=== PATIENT | male | born 1990 | race Caucasian/White ===

== ENCOUNTER 2021-06-08 17:49 | Emergency (ER) | payer SELFPAY ==
--- OUTSIDE RECORDS SUMMARY | 2021-06-08 17:55 | XMS REPORT | Continuity of Care Document ---
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 Jenna S 1,000 mL, Mem oria Chloride 3-18 Rafael Rate: l 0.9% 12:22: 1,000 [place] (Bolus) IV 00 ml/hr, 1,000 mL Infuse over: 1 hr, Route: IV, kg, Total Volume: 1,000, Bolus Dose, Priority: STAT, Start date: 05/31/11 7:22:00, Duration: 1 doses or times, Stop date: 05/31/11 8:21:00 ondansetron No Jenna S 4 mg, Me moria 3-18 Rafael Route: l 12:22: IVP, ONCE, Jonny Priority: STAT, Start date: 05/31/11 7:22:00, Stop date: 05/31/11 7:22:00 Keppra 1000 No Jenna S 1,000 mg, Memoria mg oral 3-18 Rafael 2 tab, l tablet 12:22: Route: PO, Ivette nn Drug form: TAB, ONCE, Priority: STAT, Start date: 05/31/11 7:22:00, Stop date: 05/31/11 7:22:00 Saline No Jenna S 5 ml, Memoria Flush 0.9% 3-18 Rafael Route: l 12:22: IVP, Drug [place] Form: INJ, PRN, PRN Line Flush, Start date: 05/31/11 7:22:00, Duration: 30 day, Stop date: 06/30/11 7:21:00 Sodium 2012-0 No Jenna S 1,000 mL, Mem oria Chloride 3-18 Rafael Rate: l 0.9% 12:22: 1,000 [place] (Bolus) IV 00 ml/hr, 1,000 mL Infuse over: 1 hr, Route: IV, kg, Total Volume: 1,000, Bolus Dose, Priority: STAT, Start date: 05/31/11 7:22:00, Duration: 1 doses or times, Stop date: 05/31/11 8:21:00 Vital Signs Vital Name Observation Time Observation Value Comments Source Systolic blood 2020-11-17 22:34:08 114 mm[Hg] [facility] pressure Diastolic blood 2020-11-17 22:34:08 67 mm[Hg] [facility] pressure Heart rate 2020-11-17 22:34:08 72 /min [facility] Body temperature 2020-11-17 22:34:08 36.28 Merna [facility] Respiratory rate 2020-11-17 22:34:08 18 /min [facility] Oxygen saturation in 2020-11-17 22:34:08 98 /min [facility] Arterial blood by Pulse oximetry Body height 2020-11-15 00:58:00 170.2 cm [facility] Body weight 2020-11-15 00:58:00 72.576 kg [facility] BMI 2020-11-15 00:58:00 25.06 kg/m2 [facility] Systolic (mm Hg) 2020-02-21 20:16:00 Gautam rial [place] Diastolic (mm Hg) 2020-02-21 20:16:00 [facility] orial [place] Heart Rate 2020-02-21 20:16:00 [facility] Height 2020-02-21 20:16:00 170.18 cm [facility] Weight 2020-02-21 20:16:00 [facility] BMI Calculated 2020-02-21 20:16:00 Memori al [place] Systolic (mm Hg) 2019-05-18 14:43:00 Gautam rial Jonny Diastolic (mm Hg) 2019-05-18 14:43:00 Mem orial Jonny Heart Rate 2019-05-18 14:43:00 [facility] [place] Height 2019-05-18 14:43:00 170.18 cm [facility] Jonny Weight 2019-05-18 14:43:00 [facility] [place] BMI Calculated 2019-05-18 14:43:00 Memori al [place] Height 2018-05-10 21:36:00 170.18 cm [facility] [place] Weight 2018-05-10 21:36:00 [facility] Jonny BMI Calculated 2018-05-10 21:36:00 Memori al Jonny Heart Rate 2018-05-10 21:36:00 [facility] Jon[place] Systolic (mm Hg) 2018-05-10 21:36:00 Gautam rial Jonny Diastolic (mm Hg) 2018-05-10 21:36:00 Mem orial [place] Weight 2017-10-05 14:35:00 [facility] [place] Height 2017-10-05 14:35:00 170.18 cm [facility] Jonny BMI Calculated 2017-10-05 14:35:00 Memori al Jonny Respitory Rate 2013-07-10 06:33:00 Memori al Jonny Heart Rate 2013-07-10 06:33:00 [facility] [place] Diastolic (mm Hg) 2013-07-10 06:33:00 Mem orial Jonny Systolic (mm Hg) 2013-07-10 06:33:00 Gautam rial [place] Temperature Oral (F) 2013-07-10 06:33:00 99.3 F [facility] Jonny BMI Calculated 2013-07-10 05:20:00 Memori al [place] Weight 2013-07-10 05:20:00 [facility] [place] Height 2013-07-10 05:20:00 170.18 cm [facility] Jonny Heart Rate 2013-07-10 05:20:00 [facility] [place] Respitory Rate 2013-07-10 05:20:00 Memori al Jonny Temperature Oral (F) 2013-07-10 05:20:00 98.8 F [facility] [place] Systolic (mm Hg) 2013-07-10 05:20:00 Gautam rial Jonny Diastolic (mm Hg) 2013-07-10 05:20:00 Mem orial Jonny Weight 2012-08-02 12:33:00 [facility] [place] Height 2012-08-02 12:33:00 170.18 cm [facility] [place] Height 2012-06-03 14:05:00 182.88 cm [facility] [place] Weight 2012-06-03 14:05:00 [facility] [place] Weight 2012-04-27 15:19:00 [facility] [place] Height 2011-07-03 23:25:00 172.72 cm [facility] Jonny Weight 2011-07-03 23:25:00 [facility] [place] Height 2011-05-31 11:56:00 170.18 cm [facility] [place] Weight 2011-05-31 11:56:00 [facility] Procedures Procedure Date / Time Performed Performing Clinician Sourc e RESPIRATORY PATHOGEN 2020-11-15 05:01:00 Samir Vicente [facility] PANEL WITH COVID-19 RT-PCR Plan of Care Planned Activity Planned Date Details Comments Source Future Scheduled 2021-02-09 [facility]28 (1) [code = COVID-19 VACCINE (1)] Future Scheduled 2021-02-09 [facility] Test 21:27:28 screening (procedure) [code = 539320577] Future Scheduled 2021-02-09 INFLUENZA VACCINE Method [facility] Test 21:27:28 [code = INFLUENZA VACCINE] Encounters Start End Encounter Admission Attending Care Care Encounter Source Date/Time Date/Time Type Type Clinicians Facility Department ID 2021-04-24 Outpatient nullFlavo [facility] [id number] Memoria 23:52:22 r Medical 01 [facility] 2021-04-24 OD [facility] [id number] [place] moria 23:52:22 00 [facility] 2021-04-24 Outpatient nullFlavo [facility] [id number] Memoria 23:52:22 r Medical 03 [facility] 2021-01-22 2021-01-24 Phone nullFlavo [facility] [id number] Memoria 16:28:19 05:59:59 Message r Neurology 20 l Ofelia [place] 2020-11-17 2020-11-17 Infusion Samir Vicente 1.2.840.1 [id number] Methodi 15:43:22 17:43:[address] 3.430.2.7 Hospit a .3.716756 l .8 2020-11-16 2020-11-16 Orders LeSamir 1.2.840.1 [id number] Methodi 00:00:00 00:00:00 Only Jude [address]80.1.[address] 3.430.2.7 Hospit a .3.116957 l .8 2020-11-16 2020-11-16 Telephone Gregory 1.2.840.1 [id number] Methodi 00:00:00 00:00:00 [address]ame[address] 3.430.2.7 Hospit a .3.064833 l .8 2020-11-16 2020-11-16 Travel 1.2.840.1 1.2.504.249 [id number] Methodi 00:00:00 00:00:[address] 3.430.2.7 0.2.7.3.698 Ho spita .3.706885 084.8 l .8 2020-11-14 2020-11-15 Emergency LeSamir 1.2.840.1 [id number] Methodi 22:29:00 00:06:[address] 3.430.2.7 Hospit a .3.771454 l .8 2020-11-14 2020-11-14 Travel 1.2.840.1 1.2.478.384 [id number] Methodi 00:00:00 00:00:[address] 3.430.2.7 0.2.7.3.698 Ho spita .3.435768 084.8 l .8 2020-10-07 2020-10-07 Ambulatory nullFlavo MNA [id number] Memoria 12:40:00 12:40:00 Pre-Reg r Neurology 15 l Ofelia Fuller 2020-08-15 2020-08-17 Phone nullFlavo MNA [id number] Memoria 14:46:29 04:59:59 Message r Neurology 19 l Ofelia Fuller 2020-06-10 2020-06-12 Phone nullFlavo MNA [id number] Memoria 12:10:53 04:59:59 Message r Neurology 18 brionna Fuller 2020-06-06 2020-06-06 Ambulatory nullFlavo MNA [id number] Memoria 19:20:00 19:20:00 Pre-Reg r Neurology 14 l Ofelia Fuller 2020-04-26 2020-04-28 Outside nullFlavo MNA [id number] Memoria 14:16:14 05:59:59 Medical r Neurology 17 l Wilfredo Fuller 2020-04-08 2020-04-10 Phone nullFlavo MNA [id number] Memoria 13:44:17 05:59:59 Message r Neurology 16 l Ofelia Fuller 2020-02-21 2020-02-22 Outpatient nullFlavo MNA [id number] Memoria 19:40:00 05:59:59 r Neurology 13 brionna Fuller 2020-01-22 2020-01-24 Phone nullFlavo MNA [id number] Memoria 21:45:21 05:59:59 Message r Neurology 15 brionna Fuller 2019-11-17 2019-11-17 Ambulatory nullFlavo MNA [id number] Memoria 16:00:00 16:00:00 Pre-Reg r Neurology 12 brionna Fuller 2019-11-17 2019-11-17 Ambulatory nullFlavo MNA [id number] Memoria 16:00:00 16:00:00 Pre-Reg r Neurology 11 brionna Fuller 2019-08-15 2019-08-17 Phone nullFlavo MNA [id number] Memoria 12:37:55 04:59:59 Message r Neurology 13 brionna Fuller 2019-06-26 2019-06-28 Phone nullFlavo MNA [id number] Memoria 16:48:51 04:59:59 Message r Neurology 12 brionna Fuller 2019-05-24 2019-05-26 Phone nullFlavo MNA [id number] Memoria 16:32:52 04:59:59 Message r Neurology 11 brionna Fuller 2019-05-18 2019-05-19 Outpatient nullFlavo MNA [id number] Memoria 14:15:00 05:59:59 r Neurology 10 l Ofelia Jonny 2018-12-01 2018-12-01 Ambulatory nullFlavo MNA [id number] Memoria 19:45:00 19:45:00 Pre-Reg r Neurology 06 brionna Fuller 2018-08-29 2018-08-31 Phone nullFlavo MNA [id number] Memoria 21:10:34 04:59:59 Message r Neurology 10 brionna Fuller 2018-05-25 2018-05-27 Phone nullFlavo MNA [id number] Memoria 18:57:00 04:59:59 Message r Neurology 09 brionna Fuller 2018-05-24 2018-05-26 Phone nullFlavo MNA [id number] Memoria 16:00:00 04:59:59 Message r Neurology 08 brionna Fuller 2018-05-10 2018-05-11 Outpatient nullFlavo MNA [id number] Memoria 20:45:00 05:59:59 r Neurology 05 brionna Fuller 2018-05-04 2018-05-06 Phone nullFlavo MNA [id number] Memoria 14:36:00 05:59:59 Message r Neurology 07 brionna Fuller 2018-04-08 2018-04-08 Ambulatory nullFlavo MNA [id number] Memoria 17:30:00 17:30:00 Pre-Reg r Neurology 04 brionna Fuller 2017-12-29 2017-12-31 Phone nullFlavo MNA [id number] Memoria 16:46:00 04:59:59 Message r Neurology 06 brionna Fuller 2017-10-14 2017-10-16 Phone nullFlavo MNA [id number] Memoria 16:55:00 04:59:59 Message r Neurology 05 brionna Fuller 2017-10-05 2017-10-06 Outpatient nullFlavo MNA [id number] Memoria 14:00:00 04:59:59 r Neurology 03 brionna Fuller 2017-08-23 2017-08-25 Phone nullFlavo MNA [id number] Memoria 20:34:00 04:59:59 Message r Neurology 04 brionna Fuller 2017-08-23 2017-08-25 Phone nullFlavo MNA [id number] Memoria 20:33:00 04:59:59 Message r Neurology 03 l Ofelia Fuller 2017-05-24 2017-05-26 Phone nullFlavo MNA [id number] Memoria 18:06:00 04:59:59 Message r Neurology 02 l Ofelia Fuller 2017-05-19 2017-05-19 Ambulatory nullFlavo MNA [id number] Memoria 21:30:00 21:30:00 Pre-Reg r Neurology 02 l Ofelia Fuller 2017 2017-04-15 Phone nullFlavo MNA [id number] Memoria 15:44:00 05:59:59 Message r Neurology 01 l Ofelia Fuller 2017-03-24 2017-03-26 Phone nullFlavo MNA [id number] Memoria 23:05:00 05:59:59 Message r Neurology 00 l Ofelia Fuller 2016-11-18 2016-11-18 Outpatient MHIE MHIE [id number] Memoria 15:45:00 15:45:00 01 brionna Fuller 2016-05-15 2016-05-15 Outpatient MHIE MHIE [id number] Memoria 10:00:00 10:00:00 00 brionna Fuller 2013-07-10 2013-07-10 EC nullFlavo [facility] [id number] Memoria 05:16:00 06:34:00 Emergency r Jonny 05 l [facility] 2012-08-02 2012-08-02 Emergency nullFlavo [facility] [id number] Memoria 07:32:00 08:44:00 [facility] 02 brionna Fuller 2012-06-03 2012-06-03 Emergency nullFlavo [facility] [id number] Memoria 09:03:00 14:08:00 r 00 brionna Fuller 2012-04-27 2012-04-27 Emergency nullFlavo [facility] [id number] Memoria 09:08:00 12:58:00 r Medical 67 l [facility] 2012-04-27 2012-04-27 AA nullFlavo [facility] [id number] Memoria 09:16:00 09:16:00 r Medical 70 l [facility] 2011-07-03 2011-07-03 Emergency nullFlavo [facility] [id number] Memoria 18:21:00 21:42:00 r 01 brionna Fuller 2011-05-31 2011-05-31 Emergency nullFlavo Ofelia [id number] Memoria 06:52:00 08:44:00 r 00 l Jonny Results Test Description Test Time Test Comments Results Result Comments Source URINALYSIS 2012-06-03 16:23:40 Test Item Value Reference Range Interpretation Comme nts UA Protein (test code = UA Protein) Trace *ABN*(06/03/2012 11:23:40 ) [facility] 16:23:40 Test Item Value Reference Range Interpretation Comments UA Bacteria (test code Occasional /HPF N = UA Bacteria) (06/03/2012 11:23:40) [facility]kmfiDMYVBWGKO4246-84-60 16:23:40 Test Item Value Reference Range Interpretation Comments U Phencyc Scr (test Negative code = U Phencyc Scr) *NA*(06/03/2012 11:23:40) [facility]koxirHDZNUERYZ1865-78-99 16:23:40 Test Item Value Reference Range Interpretation Comments U Opiate Scr (test Negative code = U Opiate Scr) *NA*(06/03/2012 11:23:40) [facility]GeiqfmyWGTTTDMVA7034-05-61 16:23:40 Test Item Value Reference Range Interpretation Comments U Cannab Scr (test Negative code = U Cannab Scr) *NA*(06/03/2012 11:23:40) [facility] HospitalHcaznxyDKDWHDZOG2587-35-47 16:23:40 Test Item Value Reference Range Interpretation Comments U Cocaine Scr (test Negative code = U Cocaine Scr) *NA*(06/03/2012 11:23:40) [facility] CenterFsvjpbkXLHGDMTTN4082-90-52 16:23:40 Test Item Value Reference Range Interpretation Comments UDS Note (test code = See Note 3(06/03/2012 N UDS Note) 11:23:40) [facility] CenterRbkwewpDGFICYDFN0134-82-42 16:23:40 Test Item Value Reference Range Interpretation Comments U Benzodia Scr (test Positive A code = U Benzodia Scr) *ABN*(06/03/2012 11:23:40) [facility] CenterXxnhuriCMFCRSINX8208-44-22 16:23:40 Test Item Value Reference Range Interpretation Comments U Kirsty Scr (test code Negative *NA*(06/03/2012 = U Kirsty Scr) 11:23:40) [facility] CenterEqrdnrmUXEWKFGAV4828-09-38 16:23:40 Test Item Value Reference Range Interpretation Comments U Amph Scr (test code Positive A = U Amph Scr) *ABN*(06/03/2012 11:23:40) [facility] HospitalLanzypyFPBDGARVLR1192-16-51 16:23:40 Test Item Value Reference Range Interpretation Comments UA Sq Epi (test code = None Seen (06/03/2012 N UA Sq Epi) 11:23:40) [facility] HospitalLbdnccyYQDPYPIMHU2091-63-26 16:23:40 Test Item Value Reference Range Interpretation Comments UA WBC (test code = UA None Seen (06/03/2012 N WBC) 11:23:40) [facility] HospitalHqrfyxoUNYQHHJQEL6068-22-59 16:23:40 Test Item Value Reference Range Interpretation Comments UA Leuk Est (test Negative (06/03/2012 N code = UA Leuk Est) 11:23:40) [facility] CenterIhjofrwNYLPISGCJO8044-00-01 16:23:40 Test Item Value Reference Range Interpretation Comments UA Nitrite (test code Negative (06/03/2012 N = UA Nitrite) 11:23:40) [facility] CenterWrqhbwwAMXYMKVLBQ9106-01-34 16:23:40 Test Item Value Reference Range Interpretation Comments UA Urobilinogen (test code = UA 0.2 0.1-1.0 N Urobilinogen) [facility] CenterIrftyumSQRTRUTQCD1819-60-01 16:23:40 Test Item Value Reference Range Interpretation Comments UA RBC (test None Seen See_Comment N [Automated mes elvis] code = UA RBC) (06/03/2012 The system [facility] 11:23:40) generated this result transmitted ref erence range: <=2. The reference range was not used to int erpret this result as normal/abnormal . [facility] CenterPcmwuncVXCDRIDLEQ1017-17-63 16:23:40 Test Item Value Reference Range Interpretation Comments UA Color (test code = Yellow *NA*(06/03/2012 UA Color) 11:23:40) [facility] CenterVvlgipcJJEBWPXLNR2852-90-22 16:23:40 Test Item Value Reference Range Interpretation Comments UA Bili (test code = Negative *NA*(06/03/2012 UA Bili) 11:23:40) [facility] CenterNauzalvHMABGTDAVG4895-84-38 16:23:40 Test Item Value Reference Range Interpretation Comments UA Blood (test code = Negative (06/03/2012 N UA Blood) 11:23:40) [facility]qnefvsHPCBWMFEEL3409-81-42 16:23:40 Test Item Value Reference Range Interpretation Comments UA Glucose (test code Negative (06/03/2012 N = UA Glucose) 11:23:40) [facility] SystemXqtposgAQZINTOAXQ5996-52-09 16:23:40 Test Item Value Reference Range Interpretation Comments UA Ketones (test code Negative = UA Ketones) *NA*(06/03/2012 11:23:40) [facility] SystemOoyvgqrIZAQOASIPM7358-95-01 16:23:40 Test Item Value Reference Range Interpretation Comments UA Spec Grav (test code = UA Spec 1.020 1 N Grav) [facility] SystemXiseomsQNNGQJXJSQ2118-50-64 16:23:40 Test Item Value Reference Range Interpretation Comments UA pH (test code = UA pH) 6.0 1 5.0-8.0 N [facility] SystemKvmyrhkFJCNOEEOFW8430-11-57 16:23:40 Test Item Value Reference Range Interpretation Comments UA Turbidity (test code = Clear (06/03/2012 N UA Turbidity) 11:23:40) [facility] CenterMxshkpyBSBNDBJHM6463-51-53 14:20:00 Test Item Value Reference Range Interpretation Comments B/C Ratio (test code = B/C Ratio) 11 6-[address] [facility] [facility] CenterGugvnybORCLLTCWN4643-57-04 14:20:00 Test Item Value Reference Range Interpretation Comments A/G Ratio (test code = A/G Ratio) 1.4 0.7-1.[address] [facility] CenterJpzgydwTYLTTXKBQ7076-12-43 14:20:00 Test Item Value Reference Range Interpretation Comments Globulin (test code = Globulin) 2.5 2.0-4.[address] [facility] [facility] CenterTrrrixuGVJCSKXCQ6682-14-99 14:20:00 Test Item Value Reference Range Interpretation Comments AGAP (test code = AGAP) 14.5 10.0-20.[address] [facility] [facility] CenterBjmgxuhSQLSGIUMK5885-86-18 14:20:00 Test Item Value Reference Range Interpretation Comments eGFR (test code = eGFR) [address] [facility] [facility] CenterLwomvqdRNWNOPSRA3997-94-79 14:20:00 Test Item Value Reference Range Interpretation Comments Chloride Lvl (test code = Chloride Lvl) 105 95-[address] [facility] [facility] CenterUuudauzLOEGZUFXE5573-45-26 14:20:00 Test Item Value Reference Range Interpretation Comments CO2 (test code = CO2) 25 24-[address] [facility] CenterBvxurypJDKRODUYO4581-91-09 14:20:00 Test Item Value Reference Range Interpretation Comments Potassium Lvl (test code = Potassium 3.5 3.5-5.1 N Lvl) [facility] CenterBymowmiVTIBVVSOM9029-39-48 14:20:00 Test Item Value Reference Range Interpretation Comments Creatinine Lvl (test code = Creatinine 1.1 0.5-1.4 N Lvl) [facility] CenterKgoltlvTRNQVDVIN2124-42-50 14:20:00 Test Item Value Reference Range Interpretation Comments Sodium Lvl (test code = Sodium Lvl) 141 135-[address] [facility] [facility] CenterEipctxyWNRYEHMIY8690-72-91 14:20:00 Test Item Value Reference Range Interpretation Comments ALT (test code = ALT) 21 See_Comment N [Auto mated message] The system which ge nerated this result transmit [place]ston reference range : <=65. The reference range was not used to interpr et this result as mari l/abnormal. [facility] CenterRkyqahpGIHDLUXRH3991-98-25 14:20:00 Test Item Value Reference Range Interpretation Comments Alk Phos (test code = Alk Phos) 113 39-[address] [facility] CenterKaoepgbDTJFSXCMR2013-62-05 14:20:00 Test Item Value Reference Range Interpretation Comments Albumin Lvl (test code = Albumin Lvl) 3.5 3.5-5.[address] [facility] CenterIxnzdjuTPAHPWXLS7830-91-40 14:20:00 Test Item Value Reference Range Interpretation Comments Calcium Lvl (test code = Calcium Lvl) 8.6 8.5-10.[address] [facility] CenterMaabzazAGWXMSTOJ2441-25-44 14:20:00 Test Item Value Reference Range Interpretation Comments Total Protein (test code = Total 6.0 6.4-8.4 L Protein) [facility] CenterXpomobbGHYFECAOO6420-57-51 14:20:00 Test Item Value Reference Range Interpretation Comments Bili Total (test code = Bili Total) 0.3 0.2-1.[address] [facility] CenterMuwvwqeCQDROROZN3719-51-14 14:20:00 Test Item Value Reference Range Interpretation Comments AST (test code = AST) 17 See_Comment N [Auto mated message] The system which ge nerated this result transmit [place] reference range : <=37. The reference range was not used to interpr et this result as mari l/abnormal. [facility] CenterYtfkmzwPGTXJWAON0377-75-17 14:20:00 Test Item Value Reference Range Interpretation Comments BUN (test code = BUN) 12 7-[address] [facility] [facility] CenterTqipkmuPMQPBRXZP9653-85-85 14:20:00 Test Item Value Reference Range Interpretation Comments Glucose Lvl (test code = Glucose Lvl) 134 70-[address] [facility] CenterPtbdckbPJMCVHAJW1324-74-73 14:20:00 Test Item Value Reference Range Interpretation Comments Etoh (%) (test code = Etoh (%)) no gt [facility] CenterFrujpikJRASMKLJL3369-79-87 14:20:00 Test Item Value Reference Range Interpretation Comments Ethanol Lvl (test code = Ethanol Lvl) no gt [facility]SflqmypOLSZPGCWCC4698-43-12 14:20:00 Test Item Value Reference Range Interpretation Comments Segs (test code = Segs) 58.7 45.0-75.0 N [facility] HospitalFzgyclaLLXAYNDJMU6797-24-46 14:20:00 Test Item Value Reference Range Interpretation Comments Lymphocytes (test code = Lymphocytes) 29.5 20.0-40.0 N [facility] HospitalRqlwohtBVNJUDISRO7691-56-41 14:20:00 Test Item Value Reference Range Interpretation Comments Lymphocytes # (test code = Lymphocytes 1.9 1.0-5.5 N #) [facility] HospitalWnziiixYCFLZDJJXY6549-88-83 14:20:00 Test Item Value Reference Range Interpretation Comments Monocytes # (test code 0.5 See_Comment N [Aut omated message] The = Monocytes #) system which generated this result tra nsmitted reference range : <=0.8. The reference r kim was not used to int erpret this result as normal/abnormal . [facility] HospitalSgarosiOAJTZIQJYP3477-85-33 14:20:00 Test Item Value Reference Range Interpretation Comments Eosinophils (test code = 3.2 See_Comment N [A utomated message] The Eosinophils) system which ge nerated this result tra nsmitted reference range : <=4.0. The reference r kim was not used to int erpret this result as normal/abnormal . [facility] HospitalKaamqgpQNYYAVQNDG5734-58-80 14:20:00 Test Item Value Reference Range Interpretation Comments Basophils (test code = 0.2 See_Comment N [Aut omated message] The Basophils) system which ge nerated this result tra nsmitted reference range : <=1.0. The reference r kim was not used to int erpret this result as normal/abnormal . [facility] HospitalEwlwthfBWIPGAEOUW3434-66-40 14:20:00 Test Item Value Reference Range Interpretation Comments Monocytes (test code = Monocytes) 8.4 2.0-12.0 N [facility] HospitalXqyxwixDCDUZSTIHR6904-46-40 14:20:00 Test Item Value Reference Range Interpretation Comments Segs-Bands # (test code = Segs-Bands #) 3.8 1.5-8.1 N [facility] HospitalCefszzaCCAEKRHIIU0800-34-11 14:20:00 Test Item Value Reference Range Interpretation Comments Eosinophils # (test code 0.2 See_Comment N [A utomated message] The = Eosinophils #) system whic h generated this result tra nsmitted reference range : <=0.5. The reference r kim was not used to int erpret this result as normal/abnormal . [facility] HospitalGzatlneRRTZOTTFKE8427-41-85 14:20:00 Test Item Value Reference Range Interpretation Comments Basophils # (test code 0.0 See_Comment N [Aut omated message] The = Basophils #) system which generated this result tra nsmitted reference range : <=0.2. The reference r kim was not used to int erpret this result as normal/abnormal . [facility] HospitalLtdbigmRIOCTVNLPX3658-45-03 14:20:00 Test Item Value Reference Range Interpretation Comments MCV (test code = MCV) 90.2 80.0-94.0 N [facility] HospitalAaiqkisPMXWCERTSF5182-79-74 14:20:00 Test Item Value Reference Range Interpretation Comments WBC (test code = WBC) 6.4 3.7-10.4 N [facility] HospitalUzhxwrwZFMJECXVDP1269-72-74 14:20:00 Test Item Value Reference Range Interpretation Comments Hgb (test code = Hgb) 13.1 14.0-18.0 L [facility] HospitalJfnsrkqUWFWCKHDIR4145-89-34 14:20:00 Test Item Value Reference Range Interpretation Comments RBC (test code = RBC) 4.31 4.70-6.10 L [facility] HospitalYdaxtqtYQVHGPCFEL6097-00-05 14:20:00 Test Item Value Reference Range Interpretation Comments Hct (test code = Hct) 38.8 42.0-54.0 L [facility]LlmzpkhTGABJNDINS3960-54-70 14:20:00 Test Item Value Reference Range Interpretation Comments MCHC (test code = MCHC) 33.6 32.0-36.0 N [facility] HospitalXgtuizaJHSECPBRXA9301-67-70 14:20:00 Test Item Value Reference Range Interpretation Comments RDW (test code = RDW) 12.8 11.5-14.5 N [facility] HospitalBjzhyunFOFBSPAODU9734-64-21 14:20:00 Test Item Value Reference Range Interpretation Comments MCH (test code = MCH) 30.3 pg 27.0-31.0 N [facility] HospitalTablfgoOQRAWPZDZU1468-50-88 14:20:00 Test Item Value Reference Range Interpretation Comments Platelet (test code = Platelet) 287 133-450 N [facility] HospitalKibsctuCXLHHHYOWH7184-89-93 14:20:00 Test Item Value Reference Range Interpretation Comments MPV (test code = MPV) 7.4 7.4-10.4 N [facility] HospitalKamzxnhKVCJBNYZIS2481-18-44 14:20:00 Test Item Value Reference Range Interpretation Comments INR (test code = INR) 1.10 0.85-1.17 N [facility] HospitalVoaqtkmKYGJCYYRZC7267-52-46 14:20:00 Test Item Value Reference Range Interpretation Comments PTT (test code = PTT) 26.5 s 22.9-35.8 N [facility] HospitalInvfqpaMXQUOJHEYB9845-58-11 14:20:00 Test Item Value Reference Range Interpretation Comments PT (test code = PT) 14.4 s 12.0-14.7 N [facility] CenterCvosuudKECPLZZWPZ1775-98-22 14:20:00 Test Item Value Reference Range Interpretation Comments CDC-HIV 1/2 Ab (test Negative *NA*(06/03/2012 code = CDC-HIV 1/2 09:20:00) Ab) [facility] CenterZgpnuryCQWMDRFTYE0116-60-11 18:30:00 Test Item Value Reference Range Interpretation Comments UA Color (test code = Yellow *NA*(04/27/2012 UA Color) 12:30:00) [facility] CenterLtrhgjaBDIHHUINVZ1779-58-74 18:30:00 Test Item Value Reference Range Interpretation Comments UA Turbidity (test code Slight Cloudy N = UA Turbidity) (04/27/2012 12:30:00) [facility] AustinKgtogcfJVAJKAOCFQ7908-28-09 18:30:00 Test Item Value Reference Range Interpretation Comments UA Protein (test code = 100 mg/dL A UA Protein) *ABN*(04/27/2012 12:30:00) [facility]KgbfqftOHDQMYHOOP4006-19-08 18:30:00 Test Item Value Reference Range Interpretation Comments UA pH (test code = UA pH) 6.5 1 5.0-8.0 N [facility] SystemCflufguHVEQWLGYPB1891-10-42 18:30:00 Test Item Value Reference Range Interpretation Comments UA Glucose (test code Negative (04/27/2012 N = UA Glucose) 12:30:00) [facility] SystemLcpodpkBBPPQRBXGM9318-53-45 18:30:00 Test Item Value Reference Range Interpretation Comments UA Spec Grav (test code = UA Spec 1.025 1 N Grav) [facility] SystemJfzittcNCCPBOPRXO8271-51-68 18:30:00 Test Item Value Reference Range Interpretation Comments UA Urobilinogen (test code = UA 0.2 0.1-1.0 N Urobilinogen) [facility] SystemCvsijjsWDFPPFAYFP2454-29-04 18:30:00 Test Item Value Reference Range Interpretation Comments UA Blood (test code = Large *ABN*(04/27/2012 A UA Blood) 12:30:00) [facility] SystemLjhuuazHGQMPCNOTL5455-14-23 18:30:00 Test Item Value Reference Range Interpretation Comments UA Nitrite (test code Negative (04/27/2012 N = UA Nitrite) 12:30:00) [facility] SystemQamiztsLEMOOXWUBY3538-89-52 18:30:00 Test Item Value Reference Range Interpretation Comments UA Bili (test code = Negative *NA*(04/27/2012 UA Bili) 12:30:00) [facility] AustinGhvpqiqXXBDNWENIY9987-95-36 18:30:00 Test Item Value Reference Range Interpretation Comments UA Ketones (test code Negative = UA Ketones) *NA*(04/27/2012 12:30:00) [facility] SystemObuabbxHZLVFTQWME9264-81-74 18:30:00 Test Item Value Reference Range Interpretation Comments UA Leuk Est (test Negative (04/27/2012 N code = UA Leuk Est) 12:30:00) [facility] AustinCurhpliCKTPGPFZRN8637-63-21 18:30:00 Test Item Value Reference Range Interpretation Comments UA Bacteria (test code = None Seen (04/27/2012 N UA Bacteria) 12:30:00) [facility] AustinAknehfuOFLPMOFYPO5226-42-37 18:30:00 Test Item Value Reference Range Interpretation Comments UA RBC (test 0-2 /HPF See_Comment N [Automated mes elvis] code = UA RBC) (04/27/2012 The system ich 12:30:00) generated this result transmitted ref erence range: <=2. The reference range was not used to int erpret this result as normal/abnormal . [facility] AustinNncltklZWVJUALDYS5907-39-76 18:30:00 Test Item Value Reference Range Interpretation Comments UA WBC (test code = UA None Seen (04/27/2012 N WBC) 12:30:00) [facility] AustinLvygaonTDSPFKQWPJ5421-26-05 18:30:00 Test Item Value Reference Range Interpretation Comments UA Sq Epi (test code = None Seen (04/27/2012 N UA Sq Epi) 12:30:00) [facility] AustinNmkdvwiOSORHLYVSQ6501-53-00 18:30:00 Test Item Value Reference Range Interpretation Comments Micro? (test code = Performed (04/27/2012 N Micro?) 12:30:00) [facility] CenterBprnmzjOLXJWCAKO3453-18-89 17:05:00 Test Item Value Reference Range Interpretation Comments Lactic Acid Lvl (test code = Lactic 3.5 0.5-2.2 H Acid Lvl) [facility] CenterTzpzlyyZGDGBVGKL7968-25-27 17:05:00 Test Item Value Reference Range Interpretation Comments pO2 Art (test code = pO2 Art) 95 80-[address] [facility] [facility] CenterOrfqbdeOWJOSIZIP4178-04-88 17:05:00 Test Item Value Reference Range Interpretation Comments pCO2 Art (test code = pCO2 Art) 42 35-[address] [facility] CenterStbirloOVADEIQGI0327-32-13 17:05:00 Test Item Value Reference Range Interpretation Comments pH Art (test code = pH Art) 7.35 7.35-7.[address] [facility] [facility] CenterPdpazufATUVMITBY6022-23-28 17:05:00 Test Item Value Reference Range Interpretation Comments O2 Sat Art (test code = O2 Sat Art) 97.0 95.0-100.[address] [facility] CenterTbmnrqfBEFSDWAXF0813-88-90 17:05:00 Test Item Value Reference Range Interpretation Comments Temp Art (test code = Temp Art) 37.0 [facility] TwkuqkmGVBLJENJG5635-38-08 17:05:00 Test Item Value Reference Range Interpretation Comments HCO3 Art (test code = HCO3 Art) 23 22-26 N [employer] SafetyStyxbiaQMMDFAGND5402-96-81 17:05:00 Test Item Value Reference Range Interpretation Comments BE Art (test code = -2 See_Comment N [Automa winston message] The BE Art) system which ge nerated this result transmit winston reference range : <=2. The reference range was not used to interpr et this result as mari l/abnormal. [employer]GnycwiaTBKMYPKNSM5685-37-17 15:32:00 Test Item Value Reference Range Interpretation Comments CDC-HIV 1/2 Ab (test Negative *NA*(04/27/2012 code = CDC-HIV 1/2 09:32:00) Ab) [facility] TSKVYTG6040-57-82 15:24:00 Test Item Value Reference Range Interpretation Comments Antibody Scrn (test Negative (04/27/2012 N code = Antibody Scrn) 09:24:00) [facility] UZQFXAP7396-72-86 15:24:00 Test Item Value Reference Range Interpretation Comments ABO/Rh (test code = ABO/Rh) O POS [facility] LeoxxqfKAZAGGMRO6827-38-29 15:24:00 Test Item Value Reference Range Interpretation Comments pCO2 Brent (test code = pCO2 Brent) 46 38-52 N [employer] SafetyHfyklvwITTKOBFHF9351-14-19 15:24:00 Test Item Value Reference Range Interpretation Comments pO2 Brent (test code = pO2 Brent) 39 20-49 N [facility] YgnucnhYABQTVDYG6565-52-50 15:24:00 Test Item Value Reference Range Interpretation Comments Temp Brent (test code = Temp Brent) 37.0 [facility] HwendnpVQFJILVBA0759-27-27 15:24:00 Test Item Value Reference Range Interpretation Comments O2 Sat Brent (test code = O2 Sat Brent) 58.6 40.0-70.0 N [employer] SafetyQttmwukUBAJRIDJP4908-30-71 15:24:00 Test Item Value Reference Range Interpretation Comments pH Brent (test code = pH Brent) 7.19 7.28-7.42 A [facility] PlodzagHFPMFTJXS9211-08-27 15:24:00 Test Item Value Reference Range Interpretation Comments HCO3 Brent (test code = HCO3 Brent) 18 22-[address] CenterBtywdmnZLNXMZRXS9256-36-95 15:24:00 Test Item Value Reference Range Interpretation Comments BE Brent (test code = -10 See_Comment L [Automa winston message] The BE Brent) system which ge nerated this result transmit winston reference range : <=2. The reference range was not used to interpr et this result as mari l/abnormal. [facility] CenterUmdqttjGDHHDWBWW6300-21-69 15:24:00 Test Item Value Reference Range Interpretation Comments Lactic Acid Lvl (test code = Lactic 11.7 0.5-2.2 H Acid Lvl) [facility] CenterGudmhvsFKICNITHS0809-35-12 15:24:00 Test Item Value Reference Range Interpretation Comments AGAP (test code = AGAP) 26.8 10.0-20.[address] CenterUaslxkpOWLUTZARD1737-97-00 15:24:00 Test Item Value Reference Range Interpretation Comments eGFR (test code = eGFR) [address] [facility] CenterEnyzrnaMRSQVZQYV5679-97-20 15:24:00 Test Item Value Reference Range Interpretation Comments Glucose Lvl (test code = Glucose Lvl) 128 70-[address] [facility] CenterJlmuasjHURYFXHGF4794-38-37 15:24:00 Test Item Value Reference Range Interpretation Comments Potassium Lvl (test code = Potassium 3.8 3.5-5.1 N Lvl) [facility] CenterVoufsuaEAEJAXYLS6805-66-96 15:24:00 Test Item Value Reference Range Interpretation Comments Chloride Lvl (test code = Chloride Lvl) 106 95-[address] CenterLfznkqhENFQXGNAJ4360-53-66 15:24:00 Test Item Value Reference Range Interpretation Comments Sodium Lvl (test code = Sodium Lvl) 146 135-[address] [facility] CenterCteszyrPQCGFGNJG4398-52-72 15:24:00 Test Item Value Reference Range Interpretation Comments BUN (test code = BUN) 10 7-[address] CenterCyotrggAVTNPYPSQ6222-98-39 15:24:00 Test Item Value Reference Range Interpretation Comments Creatinine Lvl (test code = Creatinine 1.4 0.5-1.4 N Lvl) [facility] CenterVqofyeyGCHHYDTWR2383-03-73 15:24:00 Test Item Value Reference Range Interpretation Comments CO2 (test code = CO2) 17 24-[address] [facility] CenterJihozvxQVYSYJFWP6214-37-38 15:24:00 Test Item Value Reference Range Interpretation Comments Calcium Lvl (test code = Calcium Lvl) 8.9 8.5-10.[address] CenterThifbfzHLTWPASLZ5210-81-09 15:24:00 Test Item Value Reference Range Interpretation Comments Ethanol Lvl (test code = 5(04/27/2012 N Ethanol Lvl) 09:24:00) [facility] CenterCdwugijEFEDDHEAI1209-92-09 15:24:00 Test Item Value Reference Range Interpretation Comments Etoh (%) (test code = 4(04/27/2012 09:24:00) N Etoh (%)) [facility] HospitalVveovmkHVTQBTBVCS2893-52-18 15:24:00 Test Item Value Reference Range Interpretation Comments Rapid TEG Sample Type Citrated Whole Blood (test code = Rapid TEG Sample Type) [facility] HospitalHtlozivURFZBKGGID1658-88-81 15:24:00 Test Item Value Reference Range Interpretation Comments ACT (TEG) (test code = ACT (TEG)) 136 s 86-118 H [facility] HospitalEsdkyvpXGTAUJSHVS0100-98-84 15:24:00 Test Item Value Reference Range Interpretation Comments K-time (test code = K-time) 1.1 min 0.6-2.3 N [facility] HospitalOevklzvZQQWVIWCSN4352-88-10 15:24:00 Test Item Value Reference Range Interpretation Comments G-value (test code = G-value) 11.8 5.0-11.6 H [facility] HospitalIytraiwXMKGULCUGR3165-00-18 15:24:00 Test Item Value Reference Range Interpretation Comments Angle (test code = Angle) 76 degrees 64-80 N [facility] HospitalKwmrxkyOVIMUCMEXX0763-89-67 15:24:00 Test Item Value Reference Range Interpretation Comments Max Amp (test code = Max Amp) 70 mm 52-71 N [facility] HospitalZtfznnyMPFCWRLCHK0719-07-68 15:24:00 Test Item Value Reference Range Interpretation Comments Split Point (test code = Split Point) 0.7 min [facility] HospitalJuomvhkCPBGXLEBOL8801-06-44 15:24:00 Test Item Value Reference Range Interpretation Comments R-time (test code = R-time) 0.9 min 0.4-0.7 H [facility] HospitalJqjoxcrZMECZOGFWZ8959-56-74 15:24:00 Test Item Value Reference Range Interpretation Comments Estimated % Lysis (test 1.7 See_Comment N [Au tomated message] The code = Estimated % system wh ich generated Lysis) this result tra nsmitted reference range : <=7.5. The reference r kim was not used to int erpret this result as normal/abnormal . [facility] HospitalSgapuyjXPJTZONDHX4433-45-64 15:24:00 Test Item Value Reference Range Interpretation Comments MPV (test code = MPV) 7.9 7.4-10.4 N [facility] HospitalCovbdneBDTMWZOEFW3572-14-50 15:24:00 Test Item Value Reference Range Interpretation Comments Platelet (test code = Platelet) 375 133-450 N [facility] HospitalXmyduuaOSEXXUZEUQ2111-17-33 15:24:00 Test Item Value Reference Range Interpretation Comments Hgb (test code = Hgb) 13.6 14.0-18.0 L [facility] HospitalGgmouufBOFWXHSXXY4819-81-28 15:24:00 Test Item Value Reference Range Interpretation Comments RBC (test code = RBC) 4.70 4.70-6.10 N [facility] HospitalFsayruhSITTTLJLNI5856-49-62 15:24:00 Test Item Value Reference Range Interpretation Comments WBC (test code = WBC) 10.3 3.7-10.4 N [facility] HospitalFceppszLZPNRFJASS1287-93-42 15:24:00 Test Item Value Reference Range Interpretation Comments RDW (test code = RDW) 11.6 11.5-14.5 N [facility] HospitalAqgpsmmBYUOZKCDIK0543-21-39 15:24:00 Test Item Value Reference Range Interpretation Comments MCHC (test code = MCHC) 31.9 32.0-36.0 L [facility] HospitalEzjqpuaBVDTWHLLBY8222-83-76 15:24:00 Test Item Value Reference Range Interpretation Comments MCV (test code = MCV) 90.6 80.0-94.0 N [facility] HospitalYjrhvksYNNAKHXIMM6952-00-02 15:24:00 Test Item Value Reference Range Interpretation Comments MCH (test code = MCH) 28.9 pg 27.0-31.0 N [facility] HospitalUostzasHPPLIPFQST6357-05-16 15:24:00 Test Item Value Reference Range Interpretation Comments Hct (test code = Hct) 42.6 42.0-54.0 N [facility] HospitalKnuozxrECCYMDYDZT2105-23-95 15:24:00 Test Item Value Reference Range Interpretation Comments Monocytes # (test code 0.9 See_Comment H [Aut omated message] The = Monocytes #) system which generated this result tra nsmitted reference range : <=0.8. The reference r kim was not used to int erpret this result as normal/abnormal . [facility] HospitalMtgmxfwFMREJACYYW9120-44-07 15:24:00 Test Item Value Reference Range Interpretation Comments Eosinophils # (test code 0.2 See_Comment N [A utomated message] The = Eosinophils #) system [facility] h generated this result tra nsmitted reference range : <=0.5. The reference r kim was not used to int erpret this result as normal/abnormal . [facility] HospitalUtxuqqgCKWLANYANM4384-02-85 15:24:00 Test Item Value Reference Range Interpretation Comments Lymphocytes # (test code = Lymphocytes 3.9 1.0-5.5 N #) [facility] HospitalLkwmiaeFEKYWNBFLT8351-82-52 15:24:00 Test Item Value Reference Range Interpretation Comments Segs-Bands # (test code = Segs-Bands #) 5.3 1.5-8.1 N [facility] HospitalLkyijtbFLWRXFVGPL7649-89-89 15:24:00 Test Item Value Reference Range Interpretation Comments Basophils (test code = 0.4 See_Comment N [Aut omated message] The Basophils) system which ge nerated this result tra nsmitted reference range : <=1.0. The reference r kim was not used to int erpret this result as normal/abnormal . [facility] HospitalAmoavmlQOKZDHPYGM6112-70-74 15:24:00 Test Item Value Reference Range Interpretation Comments Eosinophils (test code = 2.3 See_Comment N [A utomated message] The Eosinophils) system which ge nerated this result tra nsmitted reference range : <=4.0. The reference r kim was not used to int erpret this result as normal/abnormal . [facility] HospitalEizjrvsEZIDPEMXHY1538-22-79 15:24:00 Test Item Value Reference Range Interpretation Comments Monocytes (test code = Monocytes) 8.4 2.0-12.0 N [facility] HospitalYkuwhwmPMIEFYYWTS6525-46-14 15:24:00 Test Item Value Reference Range Interpretation Comments Lymphocytes (test code = Lymphocytes) 38.1 20.0-40.0 N [facility] HospitalWezlndrTYGUBRNHNG7874-44-25 15:24:00 Test Item Value Reference Range Interpretation Comments Segs (test code = Segs) 50.8 45.0-75.0 N [facility] HospitalNjtkxikORWYXPVWGL2072-72-93 15:24:00 Test Item Value Reference Range Interpretation Comments Anisocyte (test code = 1+ *ABN*(04/27/2012 A Anisocyte) 09:24:00) [facility] HospitalGsuiatcLUFFEFTNUV7672-14-52 15:24:00 Test Item Value Reference Range Interpretation Comments Basophils # (test code 0.0 See_Comment N [Aut omated message] The = Basophils #) system which generated this result tra nsmitted reference range : <=0.2. The reference r kim was not used to int erpret this result as normal/abnormal . [facility] CenterLrmucgpMUGHLOSNB1484-29-44 00:46:00 Test Item Value Reference Range Interpretation Comments UDS Note (test code = See Note 2(07/03/2011 N UDS Note) 19:46:00) [facility] CenterNarytlzGBRTWWJRR2893-83-44 00:46:00 Test Item Value Reference Range Interpretation Comments U Cocaine Scr (test Negative code = U Cocaine Scr) *NA*(07/03/2011 19:46:00) [facility] CenterQjcvhdhANDBIXTUZ4384-53-89 00:46:00 Test Item Value Reference Range Interpretation Comments U Cannab Scr (test Negative code = U Cannab Scr) *NA*(07/03/2011 19:46:00) [facility] CenterRoyrrgoWGPEAMZNZ3974-53-51 00:46:00 Test Item Value Reference Range Interpretation Comments U Kirsty Scr (test code Negative *NA*(07/03/2011 = U Kirsty Scr) 19:46:00) [facility] CenterHjhmxcwIHLBESHQD5202-08-64 00:46:00 Test Item Value Reference Range Interpretation Comments U Benzodia Scr (test Negative code = U Benzodia Scr) *NA*(07/03/2011 19:46:00) [facility] CenterMeoeqfdYAXLLKRRN5072-48-21 00:46:00 Test Item Value Reference Range Interpretation Comments U Amph Scr (test code Positive A = U Amph Scr) *ABN*(07/03/2011 19:46:00) [facility] CenterKjxoavmSFZBTOBCB9655-10-59 00:46:00 Test Item Value Reference Range Interpretation Comments U Opiate Scr (test Negative code = U Opiate Scr) *NA*(07/03/2011 19:46:00) [facility] CenterZeoondmLABRLMYLO6646-87-57 00:46:00 Test Item Value Reference Range Interpretation Comments U Phencyc Scr (test Negative code = U Phencyc Scr) *NA*(07/03/2011 19:46:00) [facility] CenterNcpdmfwVAXNAFYFOY2535-63-15 00:46:00 Test Item Value Reference Range Interpretation Comments UA Urobilinogen (test code = UA 0.2 0.1-1.0 N Urobilinogen) [facility] CenterYadfetcNZTZYZKPZX6695-53-73 00:46:00 Test Item Value Reference Range Interpretation Comments UA Blood (test code = Negative (07/03/2011 N UA Blood) 19:46:00) [facility]MffajoxYHRRJTUSHD0571-61-42 00:46:00 Test Item Value Reference Range Interpretation Comments UA Nitrite (test code Negative (07/03/2011 N = UA Nitrite) 19:46:00) [facility] HospitalGuzqiahDKNTHIONEX3837-11-86 00:46:00 Test Item Value Reference Range Interpretation Comments UA Leuk Est (test Negative (07/03/2011 N code = UA Leuk Est) 19:46:00) [facility] HospitalGqeeudkTQBUBZENBY4383-56-78 00:46:00 Test Item Value Reference Range Interpretation Comments UA Spec Grav (test code = UA Spec 1.025 1 N Grav) [facility] CenterFotcyxyWNOPRMFLSL4690-23-64 00:46:00 Test Item Value Reference Range Interpretation Comments UA pH (test code = UA pH) 7.0 1 5.0-8.0 N [facility] HospitalTlesrttREAZTUBKMV0487-19-96 00:46:00 Test Item Value Reference Range Interpretation Comments UA Turbidity (test code = Clear (07/03/2011 N UA Turbidity) 19:46:00) [facility] CenterUcjefomGSGKQZCJAC4330-64-78 00:46:00 Test Item Value Reference Range Interpretation Comments UA Color (test code = Yellow *NA*(07/03/2011 UA Color) 19:46:00) [facility] CenterAxppnztVGMCYMNYAX1701-78-13 00:46:00 Test Item Value Reference Range Interpretation Comments UA Bili (test code = Negative *NA*(07/03/2011 UA Bili) 19:46:00) [facility] CenterTfsqgrcNXKMYGRNVJ2190-14-69 00:46:00 Test Item Value Reference Range Interpretation Comments UA Ketones (test code Negative mg/dL = UA Ketones) *NA*(07/03/2011 19:46:00) [facility] AustinKsvgmciXCROQVKQVF3709-86-72 00:46:00 Test Item Value Reference Range Interpretation Comments UA Protein (test code Negative mg/dL N = UA Protein) (07/03/2011 19:46:00) [facility] SystemOjmubwiKNFCIDWBGK9807-65-63 00:46:00 Test Item Value Reference Range Interpretation Comments UA Glucose (test code Negative mg/dL N = UA Glucose) (07/03/2011 19:46:00) [facility] AustinCkipultJSVOQEYKUI8547-31-99 00:46:00 Test Item Value Reference Range Interpretation Comments UA Sq Epi (test code = None Seen (07/03/2011 N UA Sq Epi) 19:46:00) [facility] SystemUwxcyrlVHMIXOUUCY5343-69-54 00:46:00 Test Item Value Reference Range Interpretation Comments UA RBC (test 0-2 /HPF See_Comment N [Automated mes elvis] code = UA RBC) (07/03/2011 The system [facility] 19:46:00) generated this result transmitted ref erence range: <=2. The reference range was not used to int erpret this result as normal/abnormal . [facility]VmqfqliYPLEQBRQHV6770-87-55 00:46:00 Test Item Value Reference Range Interpretation Comments UA WBC (test code = UA 0-2 /HPF (07/03/2011 N WBC) 19:46:00) [facility] AustinQikxgtzITTAWHQWDV3512-12-83 00:46:00 Test Item Value Reference Range Interpretation Comments UA Bacteria (test code = None Seen (07/03/2011 N UA Bacteria) 19:46:00) [facility] AustinCsocbdbFTZOOGTALY1600-40-76 00:46:00 Test Item Value Reference Range Interpretation Comments Micro? (test code = Performed (07/03/2011 N Micro?) 19:46:00) [facility] CenterBqmqchyYOXGHNSXL0194-10-81 23:57:00 Test Item Value Reference Range Interpretation Comments Glucose Lvl (test code = Glucose Lvl) 90 70-[address] [facility] CenterSrkmsptVJZNCNVBZ8329-53-32 23:57:00 Test Item Value Reference Range Interpretation Comments BUN (test code = BUN) 12 7-[address] [facility] CenterNycgiksMRLYPAJXB1790-10-82 23:57:00 Test Item Value Reference Range Interpretation Comments Sodium Lvl (test code = Sodium Lvl) 139 135-[address] [facility] CenterTtedookZWLZDVOJU4692-03-14 23:57:00 Test Item Value Reference Range Interpretation Comments Creatinine Lvl (test code = Creatinine 0.9 0.5-1.4 N Lvl) [facility] CenterXhehfnlPRAOSHTTY4731-73-41 23:57:00 Test Item Value Reference Range Interpretation Comments Potassium Lvl (test code = Potassium 3.6 3.5-5.1 N Lvl) [facility] CenterPgbqrswBIZESQPVF4953-33-65 23:57:00 Test Item Value Reference Range Interpretation Comments Chloride Lvl (test code = Chloride Lvl) 104 95-[address] [facility] CenterJshwsrsLCTJCPPNB6739-16-57 23:57:00 Test Item Value Reference Range Interpretation Comments CO2 (test code = CO2) 31 24-[address] [facility] CenterKtsxudhOGEUVVCNJ7779-06-05 23:57:00 Test Item Value Reference Range Interpretation Comments Calcium Lvl (test code = Calcium Lvl) 9.0 8.5-10.[address] CenterFbcwdzqBPSWPWVSU8012-05-20 23:57:00 Test Item Value Reference Range Interpretation Comments AGAP (test code = AGAP) 7.6 10.0-20.[address] [facility] CenterWxpgngmDBHLIGCRN6008-32-70 23:57:00 Test Item Value Reference Range Interpretation Comments Etoh (%) (test code = Etoh (%)) 0.[address] [facility] CenterCqdnyxuCKKJKRAPN5667-22-93 23:57:00 Test Item Value Reference Range Interpretation Comments Ethanol Lvl (test code = Ethanol Lvl) 6 [facility]yt[facility]fulXTBGVBCAJY8209[facility] 23:57:00 Test Item Value Reference Range Interpretation Comments MPV (test code = MPV) 7.3 7.4-10.4 L [facility] HospitalNubelwtPCFGSLZTAJ5910-14-16 23:57:00 Test Item Value Reference Range Interpretation Comments Hct (test code = Hct) 34.9 42.0-54.0 L [facility] HospitalGjblbekYXFXBEXKNN1747-10-39 23:57:00 Test Item Value Reference Range Interpretation Comments Hgb (test code = Hgb) 11.9 14.0-18.0 L [facility] HospitalGwwroooHKTYLQOZQX4235-37-14 23:57:00 Test Item Value Reference Range Interpretation Comments RBC (test code = RBC) 3.94 4.70-6.10 L [facility] HospitalLwztawpILGKUJBKML5337-15-11 23:57:00 Test Item Value Reference Range Interpretation Comments MCV (test code = MCV) 88.5 80.0-94.0 N [facility] HospitalZqykbcjFBUGYEJMZU0944-22-18 23:57:00 Test Item Value Reference Range Interpretation Comments RDW (test code = RDW) 12.4 11.5-14.5 N [facility] HospitalGvesyguGASSJZMWGS6616-94-00 23:57:00 Test Item Value Reference Range Interpretation Comments Platelet (test code = Platelet) 362 133-450 N [facility] HospitalKgozzvbRMUTRCRMJK8534-45-48 23:57:00 Test Item Value Reference Range Interpretation Comments MCH (test code = MCH) 30.3 pg 27.0-31.0 N [facility] HospitalCcknyrtPPMVGVVQKC5235-80-38 23:57:00 Test Item Value Reference Range Interpretation Comments MCHC (test code = MCHC) 34.2 32.0-36.0 N [facility] HospitalLbdndrgBNJTYSUOPP7994-33-81 23:57:00 Test Item Value Reference Range Interpretation Comments WBC (test code = WBC) 14.6 3.7-10.4 H [facility] HospitalCkpglapTTGNXYTSRH0418-42-10 23:57:00 Test Item Value Reference Range Interpretation Comments Eosinophils (test code = 0.2 See_Comment N [A utomated message] The Eosinophils) system which ge nerated this result tra nsmitted reference range : <=4.0. The reference r kim was not used to int erpret this result as normal/abnormal . [facility] HospitalZlgemupHWCPPUIDWQ5479-01-78 23:57:00 Test Item Value Reference Range Interpretation Comments Basophils (test code = 0.3 See_Comment N [Aut omated message] The Basophils) system which ge nerated this result tra nsmitted reference range : <=1.0. The reference r kim was not used to int erpret this result as normal/abnormal . [facility] HospitalCqafxzsRNEHFCMLGD2828-55-30 23:57:00 Test Item Value Reference Range Interpretation Comments Segs-Bands # (test code = Segs-Bands #) 11.1 1.5-8.1 H [facility] HospitalEthcpllFRBEIWFFHN9584-25-81 23:57:00 Test Item Value Reference Range Interpretation Comments Monocytes # (test code 1.0 See_Comment H [Aut omated message] The = Monocytes #) system which generated this result tra nsmitted reference range : <=0.8. The reference r kim was not used to int erpret this result as normal/abnormal . [facility] HospitalNcepgavDEIJEJUYUN1074-28-77 23:57:00 Test Item Value Reference Range Interpretation Comments Eosinophils # (test code 0.0 See_Comment N [A utomated message] The = Eosinophils #) system whic h generated this result tra nsmitted reference range : <=0.5. The reference r kim was not used to int erpret this result as normal/abnormal . [facility] HospitalTgdpftyLPMWVIPGIR0504-95-29 23:57:00 Test Item Value Reference Range Interpretation Comments Lymphocytes # (test code = Lymphocytes 2.4 1.0-5.5 N #) [facility] HospitalLyokcbqIBQPIOMKKO9612-76-24 23:57:00 Test Item Value Reference Range Interpretation Comments Basophils # (test code 0.0 See_Comment N [Aut omated message] The = Basophils #) system which generated this result tra nsmitted reference range : <=0.2. The reference r kim was not used to int erpret this result as normal/abnormal . [facility] HospitalEtddhncVAWJNDGQRK3531-30-36 23:57:00 Test Item Value Reference Range Interpretation Comments Segs (test code = Segs) 76.2 45.0-75.0 H [facility] HospitalJxjuxpnPNSZQTTIIJ4330-14-87 23:57:00 Test Item Value Reference Range Interpretation Comments Lymphocytes (test code = Lymphocytes) 16.4 20.0-40.0 L [facility] HospitalOienyekDTWMKCQQNK9278-58-47 23:57:00 Test Item Value Reference Range Interpretation Comments Monocytes (test code = Monocytes) 6.9 2.0-12.[address] [facility] CenterNaqomulDIRFGQUVP3763-38-75 12:10:00 Test Item Value Reference Range Interpretation Comments TSH (test code = TSH) 1.640 0.360-3.[address] [facility] CenterUoatzpuMCIHWXKRS2436-67-83 12:10:00 Test Item Value Reference Range Interpretation Comments T4 Free (test code = T4 Free) 0.90 0.76-1.[address] [facility] [facility] CenterJrqsplwMBCCCKOXO4848-43-59 12:10:00 Test Item Value Reference Range Interpretation Comments Magnesium Lvl (test code = Magnesium 2.2 1.8-2.4 N Lvl) [facility] CenterBuwfbuyDDEYFKPHS1158-09-19 12:10:00 Test Item Value Reference Range Interpretation Comments Globulin (test code = Globulin) 2.8 2.0-4.[address] [facility] CenterClftxipRMRKODECY7536-26-96 12:10:00 Test Item Value Reference Range Interpretation Comments B/C Ratio (test code = B/C Ratio) 12 6-[address] CenterRvskhybIZMHPGGTG9470-35-96 12:10:00 Test Item Value Reference Range Interpretation Comments A/G Ratio (test code = A/G Ratio) 1.5 0.7-1.[address] CenterLbiswwqMVZMYKKTP3714-51-92 12:10:00 Test Item Value Reference Range Interpretation Comments AGAP (test code = AGAP) 10.6 10.0-20.[address] [facility] CenterLibkznqBUMTBYEKH2209-63-63 12:10:00 Test Item Value Reference Range Interpretation Comments BUN (test code = BUN) 12 7-[address] [facility] CenterWqmuuntQCIZWWVNH5777-90-31 12:10:00 Test Item Value Reference Range Interpretation Comments Chloride Lvl (test code = Chloride Lvl) 103 95-[address] CenterDiqzevnFKXVFOUON2793-65-24 12:10:00 Test Item Value Reference Range Interpretation Comments Calcium Lvl (test code = Calcium Lvl) 9.3 8.5-10.[address] [facility] CenterPjqxwbhZZGCHAFVE1687-95-41 12:10:00 Test Item Value Reference Range Interpretation Comments CO2 (test code = CO2) 29 24-[address] CenterXdohusvWEINLOFZB0358-90-65 12:10:00 Test Item Value Reference Range Interpretation Comments Creatinine Lvl (test code = Creatinine 1.0 0.5-1.4 N Lvl) [facility] CenterYjkhaluSXQISYRFB5898-12-78 12:10:00 Test Item Value Reference Range Interpretation Comments Sodium Lvl (test code = Sodium Lvl) 139 135-[address] [facility] CenterMldjhakYHFPYUFMF4719-35-68 12:10:00 Test Item Value Reference Range Interpretation Comments Glucose Lvl (test code = Glucose Lvl) [address] CenterBgtduzfDGELVDDKY2083-48-57 12:10:00 Test Item Value Reference Range Interpretation Comments Alk Phos (test code = Alk Phos) 77 39-[address] [facility] CenterXdynaggROFDUNVVS2717-04-71 12:10:00 Test Item Value Reference Range Interpretation Comments Total Protein (test code = Total 7.1 6.4-8.4 N Protein) [facility] CenterEvxkynqEYFBRFJUZ7045-21-51 12:10:00 Test Item Value Reference Range Interpretation Comments Potassium Lvl (test code = Potassium 3.6 3.5-5.1 N Lvl) [facility] CenterMdrfgiiSZOZTYTXS5257-25-51 12:10:00 Test Item Value Reference Range Interpretation Comments Albumin Lvl (test code = Albumin Lvl) 4.3 3.5-5.[address] [facility] CenterKremvhsQRYEDWIRF1878-27-26 12:10:00 Test Item Value Reference Range Interpretation Comments ALT (test code = ALT) 27 See_Comment N [Auto mated message] The system which ge nerated this result transmit [place] reference range : <=65. The reference range was not used to interpr et this result as mari l/abnormal. [facility] CenterMtkeeowOLAHBUBWS8939-37-21 12:10:00 Test Item Value Reference Range Interpretation Comments AST (test code = AST) 23 See_Comment N [Auto mated message] The system which ge nerated this result transmit [place] reference range : <=37. The reference range was not used to interpr et this result as mari l/abnormal. [facility] CenterGybollmJRRWCXJRL1071-70-95 12:10:00 Test Item Value Reference Range Interpretation Comments Bili Total (test code = Bili Total) 0.4 0.2-1.3 N [facility] HospitalZsfkwrlHGOJFZEZMX6415-87-58 12:10:00 Test Item Value Reference Range Interpretation Comments Segs-Bands # (test code = Segs-Bands #) 4.8 1.5-8.1 N [facility] HospitalZfruszhBEOVEZBQUB6733-14-82 12:10:00 Test Item Value Reference Range Interpretation Comments Basophils (test code = 0.4 See_Comment N [Aut omated message] The Basophils) system which ge nerated this result tra nsmitted reference range : <=1.0. The reference r kim was not used to int erpret this result as normal/abnormal . [facility] HospitalUismhhdVLZNPABVZL1593-19-88 12:10:00 Test Item Value Reference Range Interpretation Comments Monocytes # (test code 0.7 See_Comment N [Aut omated message] The = Monocytes #) system which generated this result tra nsmitted reference range : <=0.8. The reference r kim was not used to int erpret this result as normal/abnormal . [facility] HospitalUcnkbmdLZVKQWSNDN4936-66-63 12:10:00 Test Item Value Reference Range Interpretation Comments Lymphocytes # (test code = Lymphocytes 3.0 1.0-5.5 N #) [facility] HospitalKtfdpieNVFGFGADUX8708-32-36 12:10:00 Test Item Value Reference Range Interpretation Comments Eosinophils (test code = 2.9 See_Comment N [A utomated message] The Eosinophils) system which ge nerated this result tra nsmitted reference range : <=4.0. The reference r kim was not used to int erpret this result as normal/abnormal . [facility] HospitalGchxqlyEWEREDVJSZ5560-15-35 12:10:00 Test Item Value Reference Range Interpretation Comments Eosinophils # (test code 0.3 See_Comment N [A utomated message] The = Eosinophils #) system whic h generated this result tra nsmitted reference range : <=0.5. The reference r kim was not used to int erpret this result as normal/abnormal . [facility] HospitalSkjzykqRXMLAGZWSU7204-49-88 12:10:00 Test Item Value Reference Range Interpretation Comments Basophils # (test code 0.0 See_Comment N [Aut omated message] The = Basophils #) system which generated this result tra nsmitted reference range : <=0.2. The reference r kim was not used to int erpret this result as normal/abnormal . [facility] HospitalAmjqvgsTOYWWZPDWU4924-94-25 12:10:00 Test Item Value Reference Range Interpretation Comments Monocytes (test code = Monocytes) 7.5 2.0-12.0 N [facility] HospitalWdxzurxKLSYDEYOOA2590-55-76 12:10:00 Test Item Value Reference Range Interpretation Comments Segs (test code = Segs) 54.5 45.0-75.0 N [facility] HospitalPynafpsHEEHWETEWX8620-75-23 12:10:00 Test Item Value Reference Range Interpretation Comments Lymphocytes (test code = Lymphocytes) 34.6 20.0-40.0 N [facility] HospitalLeqnznxSDSTLQMIOM1799-87-34 12:10:00 Test Item Value Reference Range Interpretation Comments MPV (test code = MPV) 7.4 7.4-10.4 N [facility] HospitalEsrhtujRHSFAAURRW1228-24-68 12:10:00 Test Item Value Reference Range Interpretation Comments RDW (test code = RDW) 13.1 11.5-14.5 N [facility] HospitalErtavrjRSPBIKXHMP8106-37-69 12:10:00 Test Item Value Reference Range Interpretation Comments Platelet (test code = Platelet) 366 133-450 N [facility] HospitalGlkqddmXRMDLSGBRF6619-40-79 12:10:00 Test Item Value Reference Range Interpretation Comments RBC (test code = RBC) 4.05 4.70-6.10 L [facility] HospitalAjdzsezVKXQLVRJGH0564-43-54 12:10:00 Test Item Value Reference Range Interpretation Comments Hct (test code = Hct) 35.8 42.0-54.0 L [facility] HospitalEsrwhkeNNIQOCYRRD4907-81-91 12:10:00 Test Item Value Reference Range Interpretation Comments Hgb (test code = Hgb) 12.4 14.0-18.0 L [facility] HospitalMsyelpaZNFVQIFCDS7464-42-20 12:10:00 Test Item Value Reference Range Interpretation Comments MCV (test code = MCV) 88.5 80.0-94.0 N [facility] HospitalCqkhoqvPWBTRDZYZL8881-67-72 12:10:00 Test Item Value Reference Range Interpretation Comments MCHC (test code = MCHC) 34.5 32.0-36.0 N [facility] HospitalPbtofdqPJZAPJGLJQ9024-83-57 12:10:00 Test Item Value Reference Range Interpretation Comments MCH (test code = MCH) 30.5 pg 27.0-31.0 N [facility] HospitalHpsjcauEFEUYTPMWQ7654-87-70 12:10:00 Test Item Value Reference Range Interpretation Comments WBC (test code = WBC) 8.8 3.7-10.4 N [facility]
[2021-06-08] MEDS ORDERED: NA CHLORIDE 0.9% 1,000 ML ONE (19:41)
[2021-06-08] MEDS ORDERED: ONDANSETRON 4 MG/2 ML VIAL ONE (19:41)
[2021-06-08] MEDS ORDERED: FAMOTIDINE 20 MG/2 ML VIAL IV ONE (19:41)
[2021-06-08 20:15] LABS: Absolute Lymphocytes (CBC) 2.2 K/uL (0.7-4.9); RBC Red Blood Cell Count 4.38 M/uL (4.33-5.43)
[2021-06-08 20:21] LABS: Protime INR 1.2
[2021-06-08 20:21] LABS: Urine Blood Negative (Negative); Urine Glucose Negative (Negative); Urine Protein 1+ (Negative); Urine Specific Gravity >=1.030 (1.005-1.030); Urine pH 6.5 (5.0-7.0)
[2021-06-08] MEDS ORDERED: KETAMINE HCL 500 MG/5 ML VIAL ONE (20:29)
[2021-06-08] MEDS ORDERED: NA CHLORIDE 0.9% 0 ML ONE (20:35)
[2021-06-08 20:37] LABS: ALT/SGPT 16 U/L (12-78); AST/SGOT 12 U/L (15-37); Albumin 4.3 g/dL (3.4-5.0); Alkaline Phosphatase 74 U/L (45-117); BUN Blood Urea Nitrogen 10 mg/dL (7-18); Bicarbonate 25 mmol/L (21-32); Bilirubin Direct 0.2 mg/dL (0-0.2); Bilirubin Total 0.7 mg/dL (0.2-1.0); Glucose Level 110 mg/dL (74-106); Potassium 3.8 mmol/L (3.5-5.1); Protein, Total 7.8 g/dL (6.4-8.2); Sodium Level 142 mmol/L (136-145)
[2021-06-08] MEDS ORDERED: LEVETIRACETAM 500 MG/5 ML VIAL IV ONE (20:38)
[2021-06-08] MEDS ORDERED: NA CHLORIDE 0.9% 100 ML IV ONE (20:40)
[2021-06-08 20:43] LABS: Barbiturates NEGATIVE (NEGATIVE); Benzodiazepines NEGATIVE (NEGATIVE); Cocaine NEGATIVE (NEGATIVE); METHAMPHETAM NEGATIVE (NEGATIVE); Methadone NEGATIVE (NEGATIVE); Opiates NEGATIVE (NEGATIVE); Phencyclidine NEGATIVE (NEGATIVE); THC Cannibis NEGATIVE (NEGATIVE)
--- NOTE | 2021-06-08 22:13 | ER ---
Nurse's Notes [facility] Name: Fantasma Cobos Age: 31 yrs Sex: Male : 1990 Arrival Date: 06/08/2021 Time: 17:52 Bed 15 Private MD: Diagnosis: Opioid dependence with withdrawal Presentation: 06/08 18:06 Chief complaint: Patient states: "The main issue is im coming from [facility], a rehab ab2 facility. i'm going through withdrawal from fentanyl. I cant keep anything down and they wanted me to come in." Pt states last use was Wednesday night. Pt c/o n/v, chills, body aches, headache, diaphoresis. Coronavirus screen: Vaccine status: Patient reports being unvaccinated. Client denies travel out of the [place] in the last 14 days. At this time, the client does not indicate any symptoms associated with coronavirus-19. Ebola Screen: Patient negative for fever greater than or equal to 101.5 degrees Fahrenheit, and additional compatible Ebola Virus Disease symptoms Patient denies exposure to infectious person. Patient denies travel to an Ebola-affected area in the 21 days before illness onset. No symptoms or risks identified at this time. Initial Sepsis Screen: Does the patient meet any 2 criteria? No. Patient's initial sepsis screen is negative. Does the patient have a suspected source of infection? No. Patient's initial sepsis screen is negative. Risk Assessment: Do you want to hurt yourself or someone else? Patient reports no desire to harm self or others. Onset of symptoms is unknown. 18:06 Method Of Arrival: Ambulatory ab2 18:06 Acuity: ATIF 3 ab2 Triage Assessment: 18:12 General: Appears in no apparent distress. uncomfortable, Behavior is cooperative, ab2 anxious. Pain: Complains of pain in head Pain currently is 10 out of 10 on a pain scale. GI: Reports lower abdominal pain, intolerance of fluids, intolerance of food, nausea, vomiting. 18:12 Neuro: No deficits noted. Level of Consciousness is awake, alert, obeys commands, ab2 Oriented to person, place, time, situation, Appropriate for age Reports headache. Respiratory: Airway is patent Respiratory effort is even, unlabored, Respiratory pattern is regular, symmetrical. Historical: - Allergies: 18:10 No Known Allergies; ab2 - Home Meds: 18:10 Keppra 2,000 Oral tab 2 times per day [Active]; Lamictal 200 mg Oral tab 2 tabs once ab2 daily [Active]; - PMHx: 18:10 Epilepsy; Opiate abuse; ab2 - PSHx: 18:10 None; ab2 - Immunization history:: Adult Immunizations up to date. - Social history:: Smoking status: Patient denies any tobacco usage or history of. Screenin:23 Abuse screen: Denies threats or abuse. Denies injuries from another. Nutritional jeison screening: No deficits noted. Tuberculosis screening: No symptoms or risk factors identified. Fall Risk None identified. Assessment: 19:23 General: Appears in no apparent distress. Behavior is anxious, minimally. jeison 19:24 Reassessment: I agree with previous assessment. Per the pt's report, he is coming from [facility] for withdrawal from Fentanyl, opiates, meth, etc. All have been used IV by the pt. Scarring noted to his Rt AC. The pt appears in NAD and is minimally anxious. He reports that his last use was on Wednesday, having gone to [facility] on . MD at bedside assessing the pt. 21:14 Reassessment: The pt is much more comfortable and resting in the bed. He reports jeison "feeling better" and appears so, as well. 22:14 Reassessment: The pt tolerated the po challenge well. He acknowledges understanding of jeison dc instructions and will be given a copy with scripts and sent to the lobby. He said [facility] will send someone to pick him up. Vital Signs: 18:06 BP 126 / 77; Pulse 75; Resp 19; Temp 98.8(TE); Pulse Ox 100% on R/A; Weight 63.5 kg; ab2 Height 5 ft. 7 in. (170.18 cm); Pain 10/10; 19:23 BP 105 / 55; Pulse 89; Resp 18; Temp 98.5; Pulse Ox 99% on R/A; Pain 0/10; jeison 21:12 BP 110 / 60; Pulse 62; Resp 16; Pulse Ox 100% on R/A; Pain 0/10; jeison 22:07 BP 128 / 59; Pulse 72; Resp 16; Pulse Ox 100% on R/A; Pain 0/10; jeison 18:06 Body Mass Index 21.93 (63.50 kg, 170.18 cm) ab2 ED Course: 17:52 Patient arrived in ED. mr 18:10 Triage completed. ab2 18:12 Arm band placed on left wrist. ab2 19:02 Martin Zimmerman MD is Attending Physician. mh7 19:07 Idris Howell, RN is Primary Nurse. bp 19:16 Primary Nurse role handed off by Idris Howell, JIM mw2 19:22 Janel Landeros, JIM is Primary Nurse. jeison 19:24 No provider procedures requiring assistance completed. jeison 20:10 Acetaminophen Sent. jeison 20:10 Basic Metabolic Panel Sent. jeison 20:10 CBC with Diff Sent. jeison 20:10 ETOH Level Sent. jeison 20:10 Hepatic Function Sent. jeison 20:10 PT-INR Sent. jeison 20:10 Ptt, Activated Sent. jeison 20:10 Salicylate Sent. jeison 20:10 Urine Drug Screen Sent. jeison 20:14 Inserted saline lock: 20 gauge in right antecubital area, using aseptic technique. jeison Blood collected. 20:48 Salicylate Sent. jeison 22:07 Patient has correct armband on for positive identification. Bed in low position. Call jeison light in reach. 22:31 intact, bleeding controlled, No redness/swelling at site. Pressure dressing applied. jeison Administered Medications: 20:08 Drug: Zofran (Ondansetron) 4 mg Route: IVP; Site: right antecubital; jeison 21:13 Follow up: Response: Nausea is decreased jeison 20:09 Drug: NS 0.9% 1000 ml Route: IV; Rate: 1000 ml; Site: right antecubital; jeison 21:13 Follow up: IV Status: Completed infusion; IV Intake: 1000ml jeison 21:37 Follow up: IV Status: Completed infusion; IV Intake: 1000ml jeison 20:09 Drug: Pepcid (famotidine) 20 mg Route: IVP; Site: right antecubital; jeison 21:13 Follow up: Response: Nausea is decreased jeison 20:47 Drug: Keppra (levETIRAcetam) 1000 mg Route: IV; Rate: per protocol; Site: right jeison antecubital; 21:12 Follow up: Response: No adverse reaction; IV Status: Completed infusion; IV Intake: jeison 100ml Intake: 21:12 IV: 100ml; Total: 100ml. jeison 21:13 IV: 1000ml; Total: 1100ml. jeison 21:37 IV: 1000ml; Total: 2100ml. jeison Outcome: 22:07 Condition: stable jeison 22:12 Discharge ordered by . rani 22:30 Discharged to home ambulatory. jeison 22:30 Discharge instructions given to patient, Instructed on discharge instructions, follow up and referral plans. medication usage, Demonstrated understanding of instructions, follow-up care, medications, Prescriptions given X 2. 22:31 Patient left the ED. jeison Signatures: Keysha Crane Brian, RN RN Julianna Jimenez mw2 Martin Zimmerman MD MD mh7 Janel Landeros RN RN Mehdi Wallace2 Corrections: (The following items were deleted from the chart) 22:15 22:04 BP 171 / 61; Pulse 82bpm; Resp 19bpm; Pulse Ox 100% RA; Pain 0/10; jeison jeison
--- NOTE | 2021-06-08 22:13 | EDPHYS ---
Physician Documentation [facility] Name: Fantasma Cobos Age: 31 yrs Sex: Male : 1990 Arrival Date: 06/08/2021 Time: 17:52 Bed 15 Private MD: ED Physician Martin Zimmerman HPI: 06/08 19:41 This 31 yrs old Male presents to ER via Ambulatory with complaints of Withdrawals. mh7 19:41 The patient presents to the emergency department with nausea, that is moderate, mh7 vomiting, that is intermittent, described as clear fluid, diarrhea, that is intermittent. Onset: The symptoms/episode began/occurred 3 day(s) ago. Possible causes: opioid withdrawal. The symptoms are aggravated by nothing. The symptoms are alleviated by nothing. Associated signs and symptoms: Pertinent negatives: abdominal pain, anorexia, belching, constipation, dysuria, fever, flatulence, GI bleeding, hematuria. Severity of symptoms: At their worst the symptoms were moderate 2 day(s) ago, in the emergency department the symptoms are unchanged. States that he last used Fentanyl 4 days ago and is now in a drug rehab facility. Started having withdrawal symptoms of nausea, vomiting, diarrhea, goose bumps, sweating about 3 days ago.. Historical: - Allergies: 18:10 No Known Allergies; ab2 - Home Meds: 18:10 Keppra 2,000 Oral tab 2 times per day [Active]; Lamictal 200 mg Oral tab 2 tabs once ab2 daily [Active]; - PMHx: 18:10 Epilepsy; Opiate abuse; ab2 - PSHx: 18:10 None; ab2 - Immunization history:: Adult Immunizations up to date. - Social history:: Smoking status: Patient denies any tobacco usage or history of. ROS: 19:41 Constitutional: Negative for fever, chills, and weight loss, Eyes: Negative for injury, mh7 pain, redness, and discharge, ENT: Negative for injury, pain, and discharge, Neck: Negative for injury, pain, and swelling, Cardiovascular: Negative for chest pain, palpitations, and edema, Respiratory: Negative for shortness of breath, cough, wheezing, and pleuritic chest pain, Back: Negative for injury and pain, : Negative for injury, bleeding, discharge, and swelling, MS/Extremity: Negative for injury and deformity, Skin: Negative for injury, rash, and discoloration, Neuro: Negative for headache, weakness, numbness, tingling, and seizure, Psych: Negative for depression, anxiety, suicide ideation, homicidal ideation, and hallucinations, Allergy/Immunology: Negative for hives, rash, and allergies, Endocrine: Negative for neck swelling, polydipsia, polyuria, polyphagia, and marked weight changes, Hematologic/Lymphatic: Negative for swollen nodes, abnormal bleeding, and unusual bruising. Exam: 19:41 Constitutional: This is a well developed, well nourished patient who is awake, alert, mh7 and in no acute distress. Head/Face: Normocephalic, atraumatic. Eyes: Pupils equal round and reactive to light, extra-ocular motions intact. Lids and lashes normal. Conjunctiva and sclera are non-icteric and not injected. Cornea within normal limits. Periorbital areas with no swelling, redness, or edema. Neck: Trachea midline, no thyromegaly or masses palpated, and no cervical lymphadenopathy. Supple, full range of motion without nuchal rigidity, or vertebral point tenderness. No Meningismus. Chest/axilla: Normal chest wall appearance and motion. Nontender with no deformity. No lesions are appreciated. Cardiovascular: Regular rate and rhythm with a normal S1 and S2. No gallops, murmurs, or rubs. Normal PMI, no JVD. No pulse deficits. Respiratory: Lungs have equal breath sounds bilaterally, clear to auscultation and percussion. No rales, rhonchi or wheezes noted. No increased work of breathing, no retractions or nasal flaring. Abdomen/GI: Soft, non-tender, with normal bowel sounds. No distension or tympany. No guarding or rebound. No evidence of tenderness throughout. Back: No spinal tenderness. No costovertebral tenderness. Full range of motion. Skin: Warm, dry with normal turgor. Normal color with no rashes, no lesions, and no evidence of cellulitis. MS/ Extremity: Pulses equal, no cyanosis. Neurovascular intact. Full, normal range of motion. Neuro: Awake and alert, GCS 15, oriented to person, place, time, and situation. Cranial nerves II-XII grossly intact. Motor strength 5/5 in all extremities. Sensory grossly intact. Cerebellar exam normal. Normal gait. Psych: Awake, alert, with orientation to person, place and time. Behavior, mood, and affect are within normal limits. 19:41 ECG was reviewed by the Attending Physician. [facility] Vital Signs: 18:06 BP 126 / 77; Pulse 75; Resp 19; Temp 98.8(TE); Pulse Ox 100% on R/A; Weight 63.5 kg; ab2 Height 5 ft. 7 in. (170.18 cm); Pain 10/10; 19:23 BP 105 / 55; Pulse 89; Resp 18; Temp 98.5; Pulse Ox 99% on R/A; Pain 0/10; jeison 21:12 BP 110 / 60; Pulse 62; Resp 16; Pulse Ox 100% on R/A; Pain 0/10; jeison 22:07 BP 128 / 59; Pulse 72; Resp 16; Pulse Ox 100% on R/A; Pain 0/10; jeison 18:06 Body Mass Index 21.93 (63.50 kg, 170.18 cm) ab2 MDM: 22:09 Differential diagnosis: gastritis, viral gastroenteritis, gastroenteritis, Opioid [facility] withdrawal. Data reviewed: vital signs, nurses notes, lab test result(s), CBC, drug level(s), acetaminophen, alcohol, salicylate, electrolytes, urinalysis, urine drug screen. Data interpreted: Pulse oximetry: on room air is 100 %. Interpretation: normal. Counseling: I had a detailed discussion with the patient and/or guardian regarding: the historical points, exam findings, and any diagnostic results supporting the discharge/admit diagnosis, lab results, the need for outpatient follow up, to return to the emergency department if symptoms worsen or persist or if there are any questions or concerns that arise at home. Response to treatment: the patient's symptoms have resolved after treatment, the patient's blood pressure is in an acceptable range, mental status has returned to baseline, the patient no longer shows bradycardia, the patient is not short of breath, the patient is not tachycardic, the patient's pain is gone, the patient's temperature has normalized, patient is well hydrated. Tolerating oral intake without difficulty. 22:12 Patient medically screened. [facility] 06/08 19:23 Order name: Acetaminophen; Complete Time: 20:46 [facility] 06/08 19:23 Order name: Basic Metabolic Panel; Complete Time: 20:46 7 06/08 19:23 Order name: CBC with Diff; Complete Time: 20:32 7 06/08 19:23 Order name: ETOH Level; Complete Time: 20:46 06/08 19:23 Order name: Hepatic Function; Complete Time: 20:46 06/08 19:23 Order name: PT-INR; Complete Time: 20:32 7 06/08 19:23 Order name: Ptt, Activated; Complete Time: 20:32 06/08 19:23 Order name: Salicylate; Complete Time: 22:08 7 06/08 19:23 Order name: Urine Drug Screen; Complete Time: 20:46 7 06/08 20:21 Order name: Urine Dipstick-Ancillary; Complete Time: 20:32 [facility] 06/08 19:23 Order name: EKG - Nurse/Tech; Complete Time: 19:45 7 06/08 19:23 Order name: IV Saline Lock; Complete Time: 20:09 [facility] 06/08 19:23 Order name: Labs collected and sent; Complete Time: 20:09 [facility] 06/08 19:23 Order name: Suicide Screening ([place]); Complete Time: 20:09 [facility] 06/08 19:23 Order name: Urine Dipstick-Ancillary (obtain specimen); Complete Time: 20:10 mh7 EC:41 Rate is 76 beats/min. Rhythm is regular, Normal Sinus Rhythm with No ectopy. QRS Mack mh7 is Normal. Right axis deviation noted. RI interval is normal. QRS interval is normal. QT interval is normal. No Q waves. T waves are Normal. No ST changes noted. Clinical impression: Normal ECG and No evidence of ischemia. Administered Medications: 20:08 Drug: Zofran (Ondansetron) 4 mg Route: IVP; Site: right antecubital; jeison 21:13 Follow up: Response: Nausea is decreased jeison 20:09 Drug: NS 0.9% 1000 ml Route: IV; Rate: 1000 ml; Site: right antecubital; jeison 21:13 Follow up: IV Status: Completed infusion; IV Intake: 1000ml jeison 21:37 Follow up: IV Status: Completed infusion; IV Intake: 1000ml jeison 20:09 Drug: Pepcid (famotidine) 20 mg Route: IVP; Site: right antecubital; jeison 21:13 Follow up: Response: Nausea is decreased jeison 20:47 Drug: Keppra (levETIRAcetam) 1000 mg Route: IV; Rate: per protocol; Site: right jeison antecubital; 21:12 Follow up: Response: No adverse reaction; IV Status: Completed infusion; IV Intake: jeison 100ml Disposition Summary: 06/08/21 22:12 Discharge Ordered Location: Home [facility] Problem: new [facility] Symptoms: have improved [facility] Condition: Stable [facility] Diagnosis - Opioid dependence with withdrawal [facility] Followup: [facility] - With: Private Physician - When: 1 - 2 days - Reason: Worsening of condition, Recheck today's complaints, Continuance of care, Re-evaluation by your physician Discharge Instructions: - Discharge Summary Sheet [facility] - Opioid Withdrawal [facility] Forms: - Medication Reconciliation Form [facility] - Thank You Letter [facility] - Antibiotic Education [facility] - Prescription Opioid Use [facility] Prescriptions: - ondansetron 4 mg Oral tablet,disintegrating - place 1 tablet by TRANSLINGUAL route every 8 hours As needed; 10 tablet; [facility] Refills: 0, Product Selection Permitted - Pepcid 20 mg Oral Tablet - take 1 tablet by ORAL route every 12 hours for 5 days; 10 tablet; Refills: 0, 7 Product Selection Permitted Signatures: Dispatcher [employer] Martin Liu MD MD [facility] Janel Landeros RN RN Mehdi Wallace Sophia, PA PA sb3
[2021-06-08 23:19] VITALS: TEMP 98.5
[2021-06-08 23:21] VITALS: O2SAT 100
[2021-06-08 23:22] VITALS: BP 128/59
--- NOTE | 2021-06-10 12:38 | EKG ---
Test Date: 2021-06-08 Test Time: 19:35:29 Procurement Technician: TON MEASUREMENT RESULTS: Intervals: Rate: 76 PA: 152 QRSD: 98 QT: 404 QTc: 454 [place]: P: 70 PA: 152 QRS: 92 T: 76 INTERPRETIVE STATEMENTS: Normal sinus rhythm Rightward axis Borderline ECG No previous ECG available for comparison Electronically Signed On 06-10-21 12:33:34 CDT by Vadim Silva
== END 2021-06-08 22:31 | disposition home or self-care (01) ==
LOC: ER 17:49
DX: F11.13 Opioid abuse with withdrawal (principal); G40.909 Epilepsy, unspecified, not intractable, without status epilepticus
CPT/HCPCS: 36415; 80048; 80076; 80307; 80320; 80329; 81003; 85025; 85610; 85730; 93005; 96361; 96365; 96375; 99284; J1953; J2405; J7030; J7050